=== PATIENT | female | born 1965 | race American Indian/Alaskan Native ===

== ENCOUNTER 2018-11-01 11:00 | Outpatient (CLI) | payer MEDICARE | END 2018-11-01 11:01 | disposition home or self-care (01) | LOC: SLR 11:00 | PROVIDERS: ATTEND Otolaryngology | DX: G47.33 Obstructive sleep apnea (adult) (pediatric) (principal); R40.0 Somnolence; R06.83 Snoring; E66.01 Morbid (severe) obesity due to excess calories; J44.9 Chronic obstructive pulmonary disease, unspecified; I11.0 Hypertensive heart disease with heart failure; I50.9 Heart failure, unspecified | CPT/HCPCS: 95810 ==

== ENCOUNTER 2019-02-12 06:37 | Day surgery (SDC) | payer MEDICARE ==
[2019-02-12] MEDS ORDERED: NACL 0.9% 1000 ML 1,000 ML IV SCH (07:00)
[2019-02-12] MEDS ORDERED: WATER FOR IRRIG STERILE IR ONE (07:59)
--- NOTE | 2019-02-12 08:00 | Anesthesia Day of Surgery ---
Anesthesia Day of Surgery - Day of Surgery Patient Examined: Yes Patient H&P Reviewed: Yes Patient is NPO: Yes Cardiac Clearance: Yes (on the chart)
--- NOTE | 2019-02-12 08:00 | Anesthesia Consultation ---
Anesthesia Consult and Med Hx Date of service: 02/12/19 - Airway Anesthetic Teeth Evaluation: Good ROM Head & Neck: Adequate Mental/Hyoid Distance: Adequate Mallampati Class: Class III Intubation Access Assessment: Possibly Difficult - Pre-Operative Health Status ASA Pre-Surgery Classification: ASA3 Proposed Anesthetic Plan: MAC - Pulmonary COPD: Yes - Cardiovascular System Hx Hypertension: Yes (h/o CHF) Hx Heart Attack/AMI: No Hx Angina: No Hx Valvular Heart Disease: Yes (s/p aortic valve replacement 14') Hx Heart Murmur: Yes - Central Nervous System Hx Back Pain: Yes - Gastrointestinal Hx Gastroesophageal Reflux Disease: Yes - Endocrine Hx Hypothyroidism: Yes - Other Systems Hx Alcohol Use: No Hx Substance Use: No Hx Obesity: Yes (BMI 47.1)
[2019-02-12] MEDS ORDERED: DIPRIVAN 10 MG/ML IV ONE (08:10)
[2019-02-12 08:52] VITALS: BP 130/84
== END 2019-02-12 06:38 | disposition home or self-care (01) ==
LOC: GIO 06:37
PROVIDERS: ATTEND Specialist
DX: K21.9 Gastro-esophageal reflux disease without esophagitis (principal); K44.9 Diaphragmatic hernia without obstruction or gangrene; E66.01 Morbid (severe) obesity due to excess calories; K30 Functional dyspepsia; I11.0 Hypertensive heart disease with heart failure; I50.810 Right heart failure, unspecified; E78.00 Pure hypercholesterolemia, unspecified; J44.9 Chronic obstructive pulmonary disease, unspecified; M06.9 Rheumatoid arthritis, unspecified; E03.9 Hypothyroidism, unspecified; F32.9 Major depressive disorder, single episode, unspecified; Z98.890 Other specified postprocedural states; Z91.81 History of falling; Z91.041 Radiographic dye allergy status; Z91.013 Allergy to seafood; Z79.899 Other long term (current) drug therapy; Z79.82 Long term (current) use of aspirin; Z68.42 Body mass index [BMI] 45.0-49.9, adult; Z95.2 Presence of prosthetic heart valve; Z86.718 Personal history of other venous thrombosis and embolism; Z86.711 Personal history of pulmonary embolism
CPT/HCPCS: 43235; J2704; J7030

== ENCOUNTER 2019-03-12 14:47 | Emergency (ER) | payer MEDICARE ==
--- NOTE | 2019-03-12 14:56 | Emergency Department Report ---
Blank Doc - Documentation Documentation: this is a 53-year-old female that presents with acute lower back pain. Denies any urinary symptms. Stated had a fall. This initial assessment/diagnostic orders/clinical plan/treatment(s) is/are subject to change based on patient's health status, clinical progression and re- assessment by fellow clinical providers in the ED. Further treatment and workup at subsequent clinical providers discretion. Patient/guardians urged not to elope from the ED as their condition may be serious if not clinically assessed and managed. Initial orders include: 1- Patient sent to [facility] for further evaluation and treatment 2- xray
[2019-03-12 14:59] VITALS: BP 163/99
--- NOTE | 2019-03-12 15:50 | XRay Report ---
LUMBAR SPINE HISTORY: Back pain status post fall, patient fell at work, lower back pain. COMPARISON: None. TECHNIQUE: 3 view(s) of the lumbar spine obtained. FINDINGS: Vertebrae: Normal alignment. No fracture or significant abnormality. Disc Spaces:Mild degenerative endplate changes are identified throughout the lumbar region. Facet Joints:Mild diffuse facet arthropathy. Additional findings: None. IMPRESSION: 1. Mild multilevel lumbar spondylosis. No evidence for acute injury. Signer Name: Chase Soto Jr, MD Signed: 03/12/2019 2:46 PM Workstation Name: [id number]
--- NOTE | 2019-03-12 16:46 | Emergency Department Report ---
ED Back Pain/Injury HPI - General Chief Complaint: Back Pain/Injury Stated Complaint: BACK PAIN Time Seen by Provider: 03/12/19 14:56 Source: patient Limitations: No Limitations - History of Present Illness Initial Comments: Patient is a 53-year-old female who presents to the emergency room after a fall that occurred this morning. States she slipped and fell over some water. She has associated low back pain. Patient walks with a walker. She states she has chronic weakness in her legs which is why she walks with a walker. She denies any numbness or bowel bladder incontinence. Patient has a past medical history of CABG, aortic valve, HTN. - Related Data Home Medications Medication Instructions Recorded Confirmed Last Taken Carvedilol [Coreg] 6.25 mg PO BID 10/26/13 02/12/19 02/11/19 Duloxetine HCl [DULoxetine] 60 mg PO BID 03/10/17 02/12/19 02/11/19 Levothyroxine [Synthroid] 100 mcg PO QAM 03/10/17 02/12/19 02/11/19 Gabapentin [Neurontin] 300 mg PO DAILY 07/10/18 02/08/19 Unknown Loratadine [Allergy Relief] 10 mg PO DAILY 07/10/18 02/08/19 Unknown Epipen 2-Joseph 0.3 mg IM PRN PRN 02/12/19 02/12/19 Unknown Famotidine 20 mg PO BID 02/12/19 02/12/19 02/11/19 HYDROcodone/APAP 5-325 1 tab PO PRN PRN 02/12/19 02/12/19 Unknown traMADol 50 mg PO DAILY 02/12/19 02/12/19 02/11/19 Previous Rx's Medication Instructions Recorded Last Taken Type Furosemide [Lasix TAB] 20 mg PO QDAY #5 tablet 12/17/14 02/11/19 Rx Aspirin [Aspirin BABY CHEW TAB] 81 mg PO QDAY #30 tab.chew 07/12/18 02/11/19 Rx Lisinopril [Zestril TAB] 2.5 mg PO QDAY #30 tablet 07/12/18 02/11/19 Rx Pantoprazole [Protonix] 40 mg PO QDAY #30 tablet 07/12/18 02/11/19 Rx Acetaminophen [Acetaminophen ER 650 mg PO Q8HR PRN #20 tablet.er 03/12/19 Unknown Rx TAB] tiZANidine 4 mg PO QHS PRN #10 03/12/19 Unknown Rx Allergies Allergy/AdvReac Type Severity Reaction Status Date / Time iodine Allergy Severe Swelling Verified 02/12/19 07:51 shellfish derived Allergy Swelling Verified 10/26/13 18:21 ED Review of Systems ROS: Stated complaint: BACK PAIN Other details as noted in HPI Comment: All other systems reviewed and negative ED Past Medical Hx - Past Medical History Hx Hypertension: Yes (h/o CHF) Hx Heart Attack/AMI: No Hx Congestive Heart Failure: Yes Hx Deep Vein Thrombosis: Yes Hx GERD: Yes Hx Arthritis: Yes Hx COPD: Yes Additional medical history: valve replacement 01/21. pinched nerve back - Surgical History Hx Open Heart Surgery: Yes (2013) Additional Surgical History: valve replacement 01/21. left foot surgery 2008 - Social History Smoking Status: Never Smoker Substance Use Type: None - Medications Home Medications: Home Medications Medication Instructions Recorded Confirmed Last Taken Type Carvedilol [Coreg] 6.25 mg PO BID 10/26/13 02/12/19 02/11/19 History Furosemide [Lasix TAB] 20 mg PO QDAY #5 tablet 12/17/14 02/12/19 02/11/19 Rx Duloxetine HCl [DULoxetine] 60 mg PO BID 03/10/17 02/12/19 02/11/19 History Levothyroxine [Synthroid] 100 mcg PO QAM 03/10/17 02/12/19 02/11/19 History Gabapentin [Neurontin] 300 mg PO DAILY 07/10/18 02/08/19 Unknown History Loratadine [Allergy Relief] 10 mg PO DAILY 07/10/18 02/08/19 Unknown History Aspirin [Aspirin BABY CHEW TAB] 81 mg PO QDAY #30 tab.chew 07/12/18 02/12/19 02/11/19 Rx Lisinopril [Zestril TAB] 2.5 mg PO QDAY #30 tablet 07/12/18 02/12/19 02/11/19 Rx Pantoprazole [Protonix] 40 mg PO QDAY #30 tablet 07/12/18 02/12/19 02/11/19 Rx Epipen 2-Joseph 0.3 mg IM PRN PRN 02/12/19 02/12/19 Unknown History Famotidine 20 mg PO BID 02/12/19 02/12/19 02/11/19 History HYDROcodone/APAP 5-325 1 tab PO PRN PRN 02/12/19 02/12/19 Unknown History traMADol 50 mg PO DAILY 02/12/19 02/12/19 02/11/19 History Acetaminophen [Acetaminophen ER 650 mg PO Q8HR PRN #20 tablet.er 03/12/19 Unkno wn Rx TAB] tiZANidine 4 mg PO QHS PRN #10 03/12/19 Unknown Rx ED Physical Exam - General Limitations: No Limitations General appearance: alert, in no apparent distress - Head Head exam: Present: atraumatic, normocephalic - Eye Eye exam: Present: normal appearance, PERRL - ENT ENT exam: Present: mucous membranes moist - Neck Neck exam: Present: normal inspection, full ROM. Absent: tenderness - Respiratory Respiratory exam: Present: normal lung sounds bilaterally. Absent: respiratory distress, wheezes, rales, rhonchi, stridor, chest wall tenderness, accessory muscle use, decreased breath sounds, prolonged expiratory - Cardiovascular Cardiovascular Exam: Present: regular rate, normal rhythm, normal heart sounds. Absent: systolic murmur, diastolic murmur, rubs, gallop - Back Exam Back exam: Present: normal inspection, full ROM, paraspinal tenderness (right sided L-spine paraspinal muscular TTP, no C-spine, T-spine, or L-spine tenderness, no step offs, no deformity ). Absent: vertebral tenderness - Neurological Exam Neurological exam: Present: alert, oriented X3, CN II-XII intact, other (equal key carrier strength, 5/5 strength in the BUE, 3/5 strength in the BLE which is chronic per pt, sensation intact) - Psychiatric Psychiatric exam: Present: normal affect, normal mood - Skin Skin exam: Present: warm, dry, intact ED Course Vital Signs 03/12/19 14:57 Temperature 98 F Pulse Rate 89 Respiratory 16 Rate Blood Pressure 163/99 O2 Sat by Pulse 95 Oximetry ED Medical Decision Making - Radiology Data Radiology results: report reviewed LUMBAR SPINE HISTORY: Back pain status post fall, patient fell at work, lower back pain. COMPARISON: None. TECHNIQUE: 3 view(s) of the lumbar spine obtained. FINDINGS: Vertebrae: Normal alignment. No fracture or significant abnormality. Disc Spaces:Mild degenerative endplate changes are identified throughout the lumbar region. Facet Joints:Mild diffuse facet arthropathy. Additional findings: None. IMPRESSION: 1. Mild multilevel lumbar spondylosis. No evidence for acute injury. Signer Name: Chase Muniz Charles Kelly MD Signed: 03/12/2019 2:46 PM Workstation Name: [id number] Transcribed By: REF Dictated By: MIN HENRIQUEZ MD Electronically Authenticated By: MIN HENRIQUEZ MD Signed Date/Time: 03/12/19 1446 - Medical Decision Making Patient is a 53-year-old female who presents to the emergency room after a fall that occurred this morning. States she slipped and fell over some water. She has associated low back pain. Patient walks with a walker. She states she has chronic weakness in her legs which is why she walks with a walker. She denies any numbness or bowel bladder incontinence. Patient has a past medical history of CABG, aortic valve, HTN. on exam: right sided L-spine paraspinal muscular TTP, no C-spine, T-spine, or L-spine tenderness, no step offs, no deformity. XR L-spine: Mild multilevel lumbar spondylosis. No evidence for acute injury. pt given zanflex and tylenol for a low back strain. advised to please take medication as prescribed. Do not drive or operate heavy machinery while taking muscle relaxer. only take muscle relaxer once you have gotten in bed at night. Dont try to walk around while taking muscle relaxer due to potential for drowsiness. May use ice, heat, rest. Follow up with your primary care doctor in the next 2-3 days. Return to the emergency room for any new or worsening symptoms. - Differential Diagnosis strain, sprain, fx, dislocation Critical care attestation.: If time is entered above; I have spent that time in minutes in the direct care of this critically ill patient, excluding procedure time. ED Disposition Clinical Impression: Fall Qualifiers: Encounter type: initial encounter Qualified Code(s): W19.XXXA - Unspecified fall, initial encounter Low back pain Qualifiers: Chronicity: acute Back pain laterality: right Sciatica presence: without sciat ica Qualified Code(s): M54.5 - Low back pain Disposition: - TO HOME OR SELFCARE Is pt being admited?: No Does the pt Need Aspirin: No Condition: Stable Instructions: Low Back Strain (ED) Additional Instructions: Please take medication as prescribed. Do not drive or operate heavy machinery while taking muscle relaxer. only take muscle relaxer once you have gotten in bed at night. Dont try to walk around while taking muscle relaxer due to potential for drowsiness. May use ice, heat, rest. Follow up with your primary care doctor in the next 2-3 days. Return to the emergency room for any new or worsening symptoms. Prescriptions: tiZANidine 4 mg PO QHS PRN #10 PRN Reason: Muscle Spasm Acetaminophen [Acetaminophen ER TAB] 650 mg PO Q8HR PRN #20 tablet.er PRN Reason: Pain Referrals: PHAM ONTIVEROS MD [Primary Care Provider] - 2-3 Days Time of Disposition: 16:49 Print Language: BENGALI
== END 2019-03-12 17:07 | disposition home or self-care (01) ==
LOC: ED 14:47
DX: M54.5 Low back pain (principal); I11.0 Hypertensive heart disease with heart failure; I50.9 Heart failure, unspecified; I25.2 Old myocardial infarction; Z86.718 Personal history of other venous thrombosis and embolism; K21.0 Gastro-esophageal reflux disease with esophagitis; M19.90 Unspecified osteoarthritis, unspecified site; J44.9 Chronic obstructive pulmonary disease, unspecified; Z98.890 Other specified postprocedural states; Z79.82 Long term (current) use of aspirin; Z79.899 Other long term (current) drug therapy; Z88.8 Allergy status to other drugs, medicaments and biological substances; Z91.013 Allergy to seafood; W01.0XXA Fall on same level from slipping, tripping and stumbling without subsequent striking against object, initial encounter; Y93.89 Activity, other specified; Y92.89 Other specified places as the place of occurrence of the external cause; Y99.8 Other external cause status
CPT/HCPCS: 72100; 99283